=== PATIENT | female | born 1980 | race Caucasian/White ===

== ENCOUNTER 2016-09-01 14:57 | Emergency (ER) | payer MEDICAID ==
[~2016-09-01] VITALS: Ht 154.9 cm; Wt 72.2 kg
[2016-09-01 15:02] VITALS: BP 100/51
--- NOTE | 2016-09-01 15:26 | NUR ---
OBTAINED A VERBAL ORDER FOR 60MG TORADOL IM FOR PT'S PAIN ----MD CURRENTLY INVOLVED IN A I&D
[2016-09-01] MEDS ORDERED: KETOROLAC 60 MG/2 ML VIAL IM STA (15:27)
[2016-09-01] MEDS ORDERED: KETOROLAC 60 MG/2 ML VIAL IM ONE (15:29)
--- NOTE | 2016-09-01 16:08 | NUR ---
Melo prieto in [facility] - 09/01/16 at 1613 by [email or web address] PT AMB TO BED 5
--- NOTE | 2016-09-01 16:09 | NUR ---
PATIENT AMBULATED TO BED 5.
--- NOTE | 2016-09-01 16:10 | NUR ---
Note undone in EDM - 09/01/16 at 1654 by [email or web address] 36/F BIB DAUGHTER C/O DYSURIA X YESTERDAY ;URGENCY, HESITANCY SUPRAPUBIC PAIN RIGHT FLANK PAIN. HX OF R KIDNEY STONE X 10 YRS AGO. PAIN 10/10 ;GOT TORADOL 60 MG AT TRIAGE ROOM.DENIES N/V/D; SKIN IS PINK/WARM/DRY; AAOX4 WITH EVEN AND STEADY GAIT; LUNGS CLEAR BL; HR EVEN AND REGULAR; PT DENIES ANY FEVER, CP, SOB, OR COUGH AT THIS TIME; PATIENT STATES PAIN OF 0/10 AT THIS TIME; VSS; PATIENT POSITIONED FOR COMFORT; HOB ELEVATED; BEDRAILS UP X2; BED DOWN. ER MD MADE AWARE OF PT STATUS.
--- NOTE | 2016-09-01 16:10 | NUR ---
36/F BIB DAUGHTER C/O DYSURIA X YESTERDAY ;URGENCY, HESITANCY SUPRAPUBIC PAIN RIGHT FLANK PAIN. HX OF R KIDNEY STONE X 10 YRS AGO. DENIES N/V/D; SKIN IS PINK/WARM/DRY; AAOX4 WITH EVEN AND STEADY GAIT; LUNGS CLEAR BL; HR EVEN AND REGULAR; PT DENIES ANY FEVER, CP, SOB, OR COUGH AT THIS TIME; PATIENT STATES PAIN OF 7/10 AT THIS TIME; VSS; PATIENT POSITIONED FOR COMFORT; HOB ELEVATED; BEDRAILS UP X2; BED DOWN. ER MD MADE AWARE OF PT STATUS.
[2016-09-01] MEDS ORDERED: NACL 0.9% 1,000 ML IV ONE (16:30)
--- NOTE | 2016-09-01 17:11 | NUR ---
PT STS R FLANK & LOWER ABD PAIN 10.
[2016-09-01 17:42] LABS: ALBUMIN 3.9 g/dL (3.4-5.0); ANION GAP 13.6 (8-16); BASOPHILS # (AUTO) 0.1 K/uL (0.00-0.22); BASOPHILS % (AUTO) 0.7 % (0.0-2.0); CALCIUM 8.8 mg/dL (8.5-10.1); CARBON DIOXIDE 24.9 mmol/L (21-32); CREATININE 0.7 mg/dL (0.6-1.3); EOSINOPHILS # (AUTO) 0.2 K/uL (0-0.4); EOSINOPHILS % (AUTO) 1.2 % (0.0-4.0); HEMATOCRIT 30.2 % (36-48); HEMOGLOBIN 9.3 g/dL (12.0-16.0); LYMPHOCYTES # (AUTO) 1.6 K/uL (2.5-16.5); LYMPHOCYTES % (AUTO) 10.9 % (20.5-51.1); MEAN CORPUSCULAR HEMOGLOBIN 20 pg (27-31); MEAN CORPUSCULAR HGB CONC 31 g/dL (33-37); MEAN CORPUSCULAR VOLUME 65 fL (80-94); MONOCYTES # (AUTO) 0.8 K/uL (0.8-1.0); MONOCYTES % (AUTO) 5.1 % (1.7-9.3); NEUTROPHILS # (AUTO) 12.4 K/uL (1.8-7.7); NEUTROPHILS % (AUTO) 82.1 % (42.2-75.2); PLATELET COUNT (AUTO) 371 K/uL (140-450); POTASSIUM 3.5 mmol/L (3.5-5.1); RED BLOOD CELL COUNT(AUTO) 4.68 MIL/uL (4.20-5.40); RED CELL DISTRIBUTION WIDTH 17.1 % (11.6-13.7); TOTAL BILIRUBIN 0.4 mg/dL (0.0-1.0); TOTAL PROTEIN, SERUM 8.5 g/dL (6.4-8.2); WHITE BLOOD COUNT (AUTO) 15.1 K/uL (4.8-10.8)
[2016-09-01 17:44] LABS: APPEARANCE,URINE HAZY (CLEAR); BILIRUBIN,URINE NEGATIVE (NEGATIVE); BLOOD, URINE 3+ (NEGATIVE); COLOR,URINE YELLOW (YELLOW); LEUKOCYTE ESTERASE ,URINE 1+ (NEGATIVE); NITRITE, URINE NEGATIVE (NEGATIVE); PROTEIN,URINE 2+ (NEGATIVE); UGLUCOSE NEGATIVE (NEGATIVE); UROBILINOGEN,URINE 0.2 EU/dL (0.2 - 1)
[2016-09-01 17:49] LABS: LACTIC ACID 1.2 mmol/L (0.4-2.0)
--- NOTE | 2016-09-01 17:49 | NUR ---
Note ida in EDM - 09/01/16 at 1750 by [email or web address] PT TAKEN TO CT VIA W/C ACCOMPANIED BY FURNITURE AND BEDDING INSPECTOR. PT STS ABDOMINAL PAIN 06/22. DENIEDS N/V AT THIS TIME.
[2016-09-01 17:53] LABS: BACTERIA,URINE 2+ /HPF (None Seen); RBC,URINE 11-20 (MOD) /HPF (0-5); WBC,URINE TOO MANY TO COUNT /HPF (0-5)
--- NOTE | 2016-09-01 17:57 | NUR ---
PT STS HEADACHE 5.Patient appears to be resting comfortably in bed. Vital Signs within normal limits. Respirations even and unlabored.WILL CONTINUE TO MONITOR.
[2016-09-01] MEDS ORDERED: cefTRIAXone 1,000 MG VIAL ONE (18:18)
[2016-09-01] MEDS ORDERED: ONDANSETRON 4 MG/2 ML VIAL IVP ONE (18:20)
--- NOTE | 2016-09-01 18:23 | NUR ---
ER MD DR WILD REEVALUATING PT AT BEDSIDE.
--- NOTE | 2016-09-01 18:30 | NUR ---
ER MD DR WILD REEVALUATING PT AT BEDSIDE.
--- NOTE | 2016-09-01 18:50 | NUR ---
IV removed, catheter intact and site benign. Applied folded 4x4 gauze and tape to stop bleeding.
--- NOTE | 2016-09-01 18:54 | NUR ---
Patient discharged with v/s stable. Written and verbal after care instructions given and explained. Patient alert, oriented and verbalized understanding of instructions. Ambulatory with steady gait. All questions addressed prior to discharge. ID band removed. Patient advised to follow up with PMD. Rx of CIPRO , IBUPROFEN & ZOFRAN given. Patient educated on indication of medication including possible reaction and side effects. Opportunity to ask questions provided and answered.
[2016-09-01 18:55] VITALS: BP 111/66
== END 2016-09-01 18:54 | disposition home or self-care (01) ==
LOC: MED 14:57
DX: N39.0 Urinary tract infection, site not specified (principal); Z88.0 Allergy status to penicillin; Z87.442 Personal history of urinary calculi
CPT/HCPCS: 36415; 80053; 81001; 81025; 83605; 83690; 84484; 85025; 87086; 96361; 96365; 96372; 96375; 99284; J0696; J1885; J2405; J7030; J7060; 87077